=== PATIENT | female | born 1955 | race Caucasian/White ===

== ENCOUNTER 2021-04-01 10:53 | Day surgery (SDC) | payer MEDICARE, BC ==
[~2021-04-01] VITALS: Ht 170.2 cm; Wt 76.5 kg
[~2021-04-01 10:53] MED LIST: CAL1TABL8 PO; CITA10TA93 PO; CYAN100082 PO; FOLI0.4T14 PO; LEVO100T PO; MELA5TAB21 PO; MELO5CAP3; POTA8CAP20 PO; ceFAZolin 2gm in dextrose, iso 50 ML IV ONE; famotidine 20mg tablet PO ONE; ringers solution, lacted 1,000 ML IV SCH
[2021-04-01 11:20] VITALS: BP 153/94
[2021-04-01] MEDS ORDERED: hydrALAZINE 20mg/ml inj. IV PRN (11:40)
[2021-04-01] MEDS ORDERED: morphine 2 MG/ML inj. syringe IV PRN (11:40)
[2021-04-01] MEDS ORDERED: proCHLORperazine 10 MG/2 ml inj IV PRN (11:40)
[2021-04-01] MEDS ORDERED: morphine 4 MG/ML inj SYRINge IV PRN (11:40)
[2021-04-01] MEDS ORDERED: HYDROmorphone/PF 0.2 MG/ML SYRINGE IV PRN ×2 (11:40)
[2021-04-01] MEDS ORDERED: ondansetron/PF 4mg/2ml inj IV PRN (11:40)
[2021-04-01] MEDS ORDERED: meperidine/PF 25mg/ml syringe IV PRN (11:40)
[2021-04-01] MEDS ORDERED: labetalol 20mg/4ml (5mg/ml) syringe IV PRN (11:40)
[2021-04-01] MEDS ORDERED: acetaminophen 1,000mg/100ml IV 100 ML IV PRN (11:40)
[2021-04-01] MEDS ORDERED: ringers solution, lacted 1,000 ML IV SCH (11:40)
[2021-04-01] MEDS ORDERED: scopolamine 1mg/72 hr patch TD ONE (11:40)
[2021-04-01] MEDS ORDERED: CLINDAMYCIN/D5W 900mg/50ml 50 ML IV ONE (11:45)
[2021-04-01 12:02] LABS: ISTAT CREATININE 0.8 mg/dL (0.6-1.1); ISTAT HGB 13.6 g/dl (12.0-16.0); ISTAT IONIZED CALCIUM 1.29 mmol/L (1.03-1.32); ISTAT K 3.8 mmol/L (3.5-5.1)
[2021-04-01] MEDS ORDERED: BUPIVAcaine/PF 2.5 mg/ml (0.25%) 30ml vial ONE (12:51)
[2021-04-01] MEDS ORDERED: LIDOcaine 1% 30ml preserv. free vial ONE (12:51)
[2021-04-01] MEDS ORDERED: fentaNYL/PF 50MCG/1 ML 2ML syringe ONE (13:41)
[2021-04-01] MEDS ORDERED: midazolam 1 mg/ML 2ml injection ONE (13:47)
[2021-04-01] MEDS ORDERED: propofol inj 20 ML IV ONE ×2 (14:02)
[2021-04-01 14:12] VITALS: BP 124/70
--- NOTE | 2021-04-01 14:12 | NUR ---
Received from OR via , accompanied by Anesthesiologist DR MARX and report given by Anesthesiolgist. AWAKENS TO VOICE, VITALS STABLE. DRESSING DI. CARISA PAIN.
[2021-04-01] MEDS ORDERED: HYDROcodone/acetaminophen 5mg/325mg tablet PO PRN (14:20)
[2021-04-01 14:22] VITALS: BP 118/68
[2021-04-01 14:32] VITALS: BP 138/72
[2021-04-01 14:42] VITALS: BP 144/78
--- NOTE | 2021-04-01 15:02 | NUR ---
AWAKE AND ORIENTED. VITALS STABLE. DRESSING DI. CARISA PAIN. HOME WITH HER SPOUSE AT THIS TIME.
== END 2021-04-01 15:02 | disposition home or self-care (01) ==
LOC: PAS 10:53
PROVIDERS: ATTEND Surgery
DX: R22.32 Localized swelling, mass and lump, left upper limb (principal); D17.22 Benign lipomatous neoplasm of skin and subcutaneous tissue of left arm; E03.9 Hypothyroidism, unspecified; Z79.899 Other long term (current) drug therapy; Z20.822 Contact with and (suspected) exposure to COVID-19; Z90.710 Acquired absence of both cervix and uterus; Z85.828 Personal history of other malignant neoplasm of skin; Z98.890 Other specified postprocedural states; Z88.0 Allergy status to penicillin; Z88.1 Allergy status to other antibiotic agents; Z88.8 Allergy status to other drugs, medicaments and biological substances; Z72.89 Other problems related to lifestyle
CPT/HCPCS: 25071; 80047; 87635; 93005; C9803; J2001; J2250; J2704; J3010; J3490; Z7506; Z7512; 88304; A4215; A6449; A7000; J7120